=== PATIENT | male | born 1965 | race Caucasian/White ===

== ENCOUNTER 2020-08-13 17:11 | Emergency (ER) | payer OTHER ==
[~2020-08-13] VITALS: Ht 167.6 cm; Wt 90.7 kg
[2020-08-13] MEDS ORDERED: DICLOFENAC SODI75 MG PO (18:42)
== END 2020-08-13 19:05 | disposition home or self-care (01) ==
LOC: ER 17:11
DX: M25.561 Pain in right knee (principal)